=== PATIENT | male | born 1960 | race Caucasian/White ===

== ENCOUNTER 2022-12-29 13:12 | Outpatient (CLI) | payer BC, SELFPAY | END 2022-12-29 13:13 | disposition home or self-care (01) | PROVIDERS: PCP Emergency Medicine; Visit Provider Emergency Medicine | DX: Z00.00 Encounter for general adult medical examination without abnormal findings (principal); I10 Essential (primary) hypertension; Z12.5 Encounter for screening for malignant neoplasm of prostate; Z13.1 Encounter for screening for diabetes mellitus; Z13.6 Encounter for screening for cardiovascular disorders | CPT/HCPCS: 80053; 80061; 84153; 86618 ==

== ENCOUNTER 2023-01-19 10:01 | Outpatient (CLI) | payer BC, SELFPAY | END 2023-01-19 10:02 | disposition home or self-care (01) | PROVIDERS: PCP Emergency Medicine; Visit Provider Emergency Medicine | DX: Z00.00 Encounter for general adult medical examination without abnormal findings (principal); I10 Essential (primary) hypertension; R97.20 Elevated prostate specific antigen [PSA] | CPT/HCPCS: 80048; 84153; 84154 ==

== ENCOUNTER 2023-12-07 08:42 | Outpatient (CLI) | payer BC, SELFPAY | END 2023-12-07 08:43 | disposition home or self-care (01) | PROVIDERS: PCP Emergency Medicine; Visit Provider Emergency Medicine | DX: Z00.00 Encounter for general adult medical examination without abnormal findings (principal); I10 Essential (primary) hypertension; R97.20 Elevated prostate specific antigen [PSA]; Z13.6 Encounter for screening for cardiovascular disorders; Z13.1 Encounter for screening for diabetes mellitus; Z12.5 Encounter for screening for malignant neoplasm of prostate | CPT/HCPCS: 80053; 84153; 84154 ==

== ENCOUNTER 2024-11-07 09:02 | Outpatient (CLI) | payer MEDICARE, BC, SELFPAY | END 2024-11-07 09:03 | disposition home or self-care (01) | PROVIDERS: PCP Emergency Medicine; Visit Provider Emergency Medicine | DX: I10 Essential (primary) hypertension (principal) | CPT/HCPCS: 80048; 80061 ==

== ENCOUNTER 2025-01-14 09:15 | Outpatient (RCR) | payer MEDICARE, BC, SELFPAY ==
--- NOTE | 2024-12-31 12:36 | PT.OPE ---
[facility] Eval PT [facility] Outpatient Eval Start: 12/24/24 14:38 Freq: Status: Active Protocol: Document 12/24/24 14:40 SUNSHINE (Rec: 12/24/24 14:42 SUNSHINE [email or web address]) E-signed By YULY De LeonT, MS Physical Therapy Outpatient Evaluation Insurance Information Recert Due Date 03/24/25 Insurance Name Medicare B Medical Diagnosis Low back pain, unspecified Treating Diagnosis Decreased B (R> L) LE and LS flexibility, imbalance, and B LE and core weakness Subjective Preferred Name Alvin Salazar Patient is 64 y.o. male who presents to PT with c/o chronic L-sided LS and SI joint pain of insidious origin. Sxs began ~2-3 years ago with gradual onset of sxs. Describes sxs as burning ache in his L LS and SI joint that radiates to his L lateral hip. Sxs increase as the day progresses, especially with extended standing and walking, especially on uneven surfaces while hunting. Denies radicular sxs or changes in bowel or bladder function. PT was very helpful in the past and he has continued performing his stretching routine regularly. Goes to [employer] 4-5x per week with the water massage table being helpful. Also golfs 2x per week and walks his dog 2x per day with distances limited by pain levels. PMH includes LS OA and prostate CA in remission. AGGR factor: lifting and carrying objects, standing, walking, uneven surfaces. ALLEV factors: rest, fwd bending, heat, Aleve. Pt hopes to reduce sxs to increase activity levels and to be ready for the hunting season in the fall. 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 Objectively pt displays decreased B LE and LS flexibility and ROM, imbalance, gait dysfunction, and B (L>R) LE and core weakness. LS flex directional preference of movement with elevated pain with ext. Core, quad and glute weakness combined with LS and hip tightness contributing to sxs. Negative B slump test. He responded well to stretching, recumbent biking, stretching and strengthening exercises with decreased LS pain and improved quality of gait following. They will benefit from continued skilled PT intervention to address these limitations. Primary Functional Lifting and carrying objects, standing, walking, uneven Limitations surfaces. Plan of Care Rehabilitation Excellent Potential Physical Therapy Short-term goals to be completed in 4 weeks: Goals 1. Pt will be able to stand and walk for > 10 min with LS pain 50% improvement in sxs following > 2 consecutive days. 2. Pt will display improved B LE strength performing > 10 SLR of good quality to improve quality of gait. Long-term goals to be completed in 10 weeks: 1. Pt will be I and compliant with their HEP for long- term sx management. 2. Pt will display >25% improvement in B LS rot AROM to safely back up while driving. 3. Pt will display improved abdominal, B hip flex, ABD and ext strength >4/5 to improve tolerance to walking, yardwork and daily activities. 4. Pt will report >50% improvement in modified OSWESTRY questionnaire to significantly improve sharita to daily activities Coordination/ Referral Source Communication With Treatment Plan/ Joint Mobilization,Manual Therapy,Neuromuscular Re-ed, Direct Interventions Therapeutic Exercises Frequency/Duration 1x per week for 6-10 visits, decreasing visit frequency as able Patient Will Be Completion of LTG(s),Skills Plateau,Independent w/HEP, Discharged From Independently Progressing Therapy Evaluation Billing Untimed Code 25 Treatment Minutes Complexity Moderate Certification Information Initial 12/24/24 Certification Date Ending Certification 03/24/25 Date Provider Signature Yes Required Provider Signature POC & Medical Necessity Shows Agreement With Physician NPI Number Write NPI# Here Physician Comment/ : Change Physician Signature Please Sign/Date Here & Date Requested
== END 2025-05-14 23:59 | disposition home or self-care (01) ==
PROVIDERS: PCP Emergency Medicine; Visit Provider Emergency Medicine
DX: M54.50 Low back pain, unspecified (principal); Z51.89 Encounter for other specified aftercare
CPT/HCPCS: 97110; 97140; 97162